=== PATIENT | male | born 1995 | race Caucasian/White ===

== ENCOUNTER → 2020-08-24 | Outpatient (CLI) | payer BC ==
[~2020-08-24] MED LIST: NAPROSYN500 MG PO
== END ==
LOC: WCC 14:15
PROC: 0JB60ZZ Excision of Chest Subcutaneous Tissue and Fascia, Open Approach (ICD-10-PCS; principal; 2020-08-24)
PROC: 0JBG0ZZ Excision of Right Lower Arm Subcutaneous Tissue and Fascia, Open Approach (ICD-10-PCS; principal; 2020-08-24)
DX: T21.31XA Burn of third degree of chest wall, initial encounter (principal); T22.211A Burn of second degree of right forearm, initial encounter; T21.22XA Burn of second degree of abdominal wall, initial encounter; T52.0X1A Toxic effect of petroleum products, accidental (unintentional), initial encounter; I96 Gangrene, not elsewhere classified; Z79.1 Long term (current) use of non-steroidal anti-inflammatories (NSAID); Z79.891 Long term (current) use of opiate analgesic; Z79.899 Other long term (current) drug therapy
CPT/HCPCS: G0463